=== PATIENT | male | born 1975 | race African-American/Black ===

== ENCOUNTER 2021-12-25 13:12 | Emergency (ER) | payer OTHER ==
[2021-12-25 13:27] VITALS: BP 117/64; PULSE 110; RESP 20; TEMP 99.8
--- NOTE | 2021-12-25 14:24 | ED ---
Fever HPI - General Chief Complaint: Fever Stated Complaint: fever, body aches Time Seen by Provider: 12/25/21 14:18 Source: patient, RN notes reviewed Mode of arrival: ambulatory Limitations: no limitations - History of Present Illness Initial Comments: This is a 46-year-old male presents emergency Department chief complaint of fever bodyaches. Patient states certain last 24 hours. Patient states that he took some [id number] cough and cold-like medicine which seemed to help. Patient states bodyaches worsened after much more off. Patient has mild nasal congestion no shortness of breath mild cough. Patient does admit to some nausea without any other associated symptoms. Patient has no significant past history. Denies any prescription medications. - Related Data Allergies Allergy/AdvReac Type Severity Reaction Status Date / Time No Known Allergies Allergy Verified 12/25/21 13:27 Review of Systems ROS Statement: Those systems with pertinent positive or pertinent negative responses have been documented in the HPI. ROS Other: All systems not noted in ROS Statement are negative. Past Medical History Past Medical History: No Reported History History of Any Multi-Drug Resistant Organisms: None Reported Past Surgical History: Hernia Repair Past Psychological History: No Psychological Hx Reported Smoking Status: Current every day smoker Past Alcohol Use History: None Reported Past Drug Use History: None Reported General Exam Limitations: no limitations General appearance: alert, in no apparent distress Head exam: Present: atraumatic, normocephalic, normal inspection Eye exam: Present: normal appearance, PERRL, EOMI. Absent: scleral icterus, conjunctival injection, periorbital swelling ENT exam: Present: normal exam, normal oropharynx, mucous membranes moist Neck exam: Present: normal inspection, full ROM. Absent: tenderness, meningismus, lymphadenopathy Respiratory exam: Present: normal lung sounds bilaterally. Absent: respiratory distress, wheezes, rales, rhonchi, stridor Cardiovascular Exam: Present: normal rhythm, tachycardia, normal heart sounds. Absent: systolic murmur, diastolic murmur, rubs, gallop, clicks GI/Abdominal exam: Present: soft, normal bowel sounds. Absent: distended, tenderness, guarding, rebound, rigid Course Vital Signs 12/25/21 13:24 Temperature 99.8 F H Pulse Rate 110 H Respiratory 20 Rate Blood Pressure 117/64 O2 Sat by Pulse 96 Oximetry Medical Decision Making - Medical Decision Making Patient is covid 19 positive. Vitals are stable. Patient we discharged in stable condition return parameters were discussed. - Lab Data Lab Results 12/25/21 Range/Units 13:29 Coronavirus (PCR) Detected A (Not Detectd) Disposition Clinical Impression: COVID-19 Disposition: HOME SELF-CARE Condition: Stable Instructions (If sedation given, give patient instructions): Fever in Adults (ED), COVID-19 (Coronavirus Disease 2019) (ED) Additional Instructions: Please return to the Emergency Department if symptoms worsen or any other concerns. Is patient prescribed a controlled substance at d/c from ED?: No Referrals: None,Stated [Primary Care Provider] - 1-2 days Time of Disposition: 14:24
[2021-12-25] MEDS ORDERED: IBUPROFEN 600 MG TAB PO STA (14:41)
[2021-12-25] MEDS ORDERED: ACETAMINOPHEN TAB 325 MG TAB PO STA (14:41)
== END 2021-12-25 14:48 | disposition home or self-care (01) ==
LOC: EC 13:12
DX: U07.1 COVID-19 (principal); F17.200 Nicotine dependence, unspecified, uncomplicated
CPT/HCPCS: 87635; 99283

== ENCOUNTER 2022-01-01 16:15 | Emergency (ER) | payer OTHER ==
[2022-01-01 17:10] VITALS: BP 122/74; PULSE 81; RESP 18; TEMP 98.3
--- NOTE | 2022-01-01 17:37 | ED ---
General Adult HPI - General Chief complaint: Recheck/Abnormal Lab/Rx Stated complaint: Covid+/wants another covid test Time Seen by Provider: 01/01/22 17:13 Source: patient Mode of arrival: ambulatory Limitations: no limitations - History of Present Illness Initial comments: Patient is a 46-year-old male requesting repeat Covid testing. Patient tested p ositive on 12/25, he was experiencing fatigue, cough, congestion. Patient states that his employer and schooler requiring repeat testing. Patient states she is asymptomatic at this time. Patient states that he followed the 5 day quarantine roll and is currently in day 3 of wearing a mask at all times in public. He denies any chest pain, shortness of breath, fever, chills, nausea, vomiting, diarrhea, abdominal pain, rash, cough, URI-like symptoms. - Related Data Allergies Allergy/AdvReac Type Severity Reaction Status Date / Time shrimp Allergy Rash/Hives Verified 01/01/22 17:10 Review of Systems ROS Statement: Those systems with pertinent positive or pertinent negative responses have been documented in the HPI. ROS Other: All systems not noted in ROS Statement are negative. Past Medical History Past Medical History: No Reported History History of Any Multi-Drug Resistant Organisms: None Reported Past Surgical History: Hernia Repair Past Psychological History: No Psychological Hx Reported Smoking Status: Current every day smoker Past Alcohol Use History: None Reported Past Drug Use History: None Reported General Exam Limitations: no limitations General appearance: alert, in no apparent distress Head exam: Present: atraumatic, normocephalic, normal inspection Eye exam: Present: normal appearance, EOMI. Absent: scleral icterus, periorbital swelling Neck exam: Present: normal inspection Respiratory exam: Present: normal lung sounds bilaterally. Absent: respiratory distress, wheezes, rales, rhonchi, stridor Cardiovascular Exam: Present: regular rate, normal rhythm, normal heart sounds. Absent: systolic murmur, diastolic murmur, rubs, gallop, clicks Neurological exam: Present: alert, oriented X3, CN II-XII intact Psychiatric exam: Present: normal affect, normal mood Skin exam: Present: warm, dry, intact, normal color. Absent: rash Course Vital Signs 01/01/22 17:08 Temperature 98.3 F Pulse Rate 81 Respiratory 18 Rate Blood Pressure 122/74 O2 Sat by Pulse 99 Oximetry Medical Decision Making - Medical Decision Making Patient is a 46-year-old male requesting repeat Covid testing. 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 Patient states he is asymptomatic at this time. I explained to the patient that PCR testing may remain positive even after her no longer contagious, and repeat testing today may still be positive. I offered to write the patient a work note stating that by quarantine guidelines he is able to go to work and school at this time while wearing a mask at all times, and on 01/04 he is no more contagious. The patient was agreeable with this plan. Follow-up with PCP. Report back to ER if any new or worsening symptoms. Discussed return parameters answered all questions. My attending is Dr. Khoury Disposition Clinical Impression: History of COVID-19 Disposition: HOME SELF-CARE Condition: Good Instructions (If sedation given, give patient instructions): How to Recover from COVID-19 at Home (ED) Additional Instructions: Follow-up with PCP. Report back to ER with any new or worsening symptoms. You have quarantined for 5 days and on are day 3/5 of wearing a mask at all times while in public. Abdomen this time. Urine no longer contagious, and do not require immediate retesting. PCR tests can remain positive for weeks to months after testing positive for Covid, even if you are no longer contagious. Is patient prescribed a controlled substance at d/c from ED?: No Referrals: Nonstaff,Physician [Primary Care Provider] - 1-2 days Time of Disposition: 17:37
== END 2022-01-01 17:45 | disposition home or self-care (01) ==
LOC: EC 16:15
DX: Z09 Encounter for follow-up examination after completed treatment for conditions other than malignant neoplasm (principal); Z86.16 Personal history of COVID-19; F17.200 Nicotine dependence, unspecified, uncomplicated; Z91.013 Allergy to seafood
CPT/HCPCS: 99283

== ENCOUNTER 2024-02-01 07:39 | Emergency (ER) | payer OTHER ==
[2024-02-01] MEDS ORDERED: KETOROLAC 15 MG/ML 1 ML VIAL ONE (08:18)
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
--- NOTE | 2024-02-26 08:35 | XR ---
Patient: Jean-Pierre Luther Ordering Physician: Unknown, Unknown ID: [id number] Phone, Pager: Phone: N/A Pager: N/A : 1975 Age/Gender: 48Y, M Primary Location: N/A Procedure: XR shoulder comple te RT Study Date: 02/01/2024 8:45:00 AM EXAMINATION TYPE: XR shoulder complete RT DATE OF EXAM: 02/01/2024 8:46 AM CLINICAL INDICATION: Pain COMPARISON: None TECHNIQUE: XR shoulder complete RT; examined in AP, internally rotated and scapular Y projections. FINDINGS/IMPRESSION: 1. Abnormal position of the distal clavicle compared to the acromion with elevated distal clavicle. Correlate for acromioclavicular joint injury. There are some calcifications present ingesting this is possibly chronic. Correlate with patient's history. 2. No evidence for acute fracture. 3. Visualized chest appears within normal limits.
== END 2024-02-01 10:10 | disposition home or self-care (01) ==
LOC: EC 07:39
CPT/HCPCS: 72131; 96374; 99284

== ENCOUNTER → 2024-02-25 | Outpatient (CLI) | payer OTHER ==
--- NOTE | 2024-02-25 16:08 | XR ---
EXAMINATION TYPE: XR shoulder complete 3 views RT DATE OF EXAM: 02/25/2024 Comparison: 02/01/2024 Clinical History: 48-year-old male M25.511 PAIN IN RIGHT SHOULDER Findings: There is offset at the AC joint with superior positioning of the distal clavicle relative to the acro mion and extensive ossification along the region of the coracoclavicular ligaments. Subacromial space is preserved. The appearance is similar compared to prior exam. No acute fracture, subluxation, or d islocation. 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 Similar superior subluxation/dislocation at the AC joint. No acute osseous abnormality seen. [facility], , 02/25/2024 4:06 PM
== END | disposition home or self-care (01) ==
LOC: RADXRMAIN 15:16
DX: M25.511 Pain in right shoulder

== ENCOUNTER 2024-04-26 16:57 | Emergency (ER) | payer OTHER ==
[2024-04-26 17:26] VITALS: TEMP 98.2
--- NOTE | 2024-04-26 17:49 | ED ---
General Adult HPI - General Chief complaint: Back Pain/Injury Stated complaint: low back pain Time Seen by Provider: 04/26/24 17:27 Source: patient, RN notes reviewed Mode of arrival: ambulatory Limitations: no limitations - History of Present Illness Initial comments: 49-year-old male presents to the emergency department for evaluation of low back pain. Patient states that this started 2 days ago. He notes that majority of the pain is in his lower back but also reports some pain in his right flank. He denies any urinary symptoms including urinary frequency, hematuria. He denies loss of bowel or bladder function, saddle anesthesia, fever, chills. He denies any radiation of the pain. Denies numbness, tingling. - Related Data Previous Rx's Medication Instructions Recorded Cyclobenzaprine [Flexeril] 5 mg PO TID #9 tablet 04/26/24 Allergies Allergy/AdvReac Type Severity Reaction Status Date / Time shrimp Allergy Rash/Hives Verified 04/26/24 17:25 Review of Systems ROS Statement: Those systems with pertinent positive or pertinent negative responses have been documented in the HPI. ROS Other: All systems not noted in ROS Statement are negative. Past Medical History Past Medical History: No Reported History History of Any Multi-Drug Resistant Organisms: None Reported Past Surgical History: Hernia Repair Past Psychological History: No Psychological Hx Reported Smoking Status: Current every day smoker Past Alcohol Use History: None Reported Past Drug Use History: None Reported General Exam Limitations: no limitations General appearance: alert, in no apparent distress Head exam: Present: atraumatic, normocephalic, normal inspection Eye exam: Present: normal appearance, PERRL, EOMI. Absent: scleral icterus, conjunctival injection, periorbital swelling ENT exam: Present: normal exam, mucous membranes moist Neck exam: Present: normal inspection. Absent: tenderness, meningismus, lymphadenopathy Respiratory exam: Present: normal lung sounds bilaterally. Absent: respiratory distress, wheezes, rales, rhonchi, stridor Cardiovascular Exam: Present: regular rate, normal rhythm, normal heart sounds. Absent: systolic murmur, diastolic murmur, rubs, gallop, clicks GI/Abdominal exam: Present: soft. Absent: distended, tenderness, guarding, rebound, rigid Extremities exam: Present: normal inspection, full ROM, normal capillary refill. Absent: tenderness, pedal edema, joint swelling, calf tenderness Back exam: Present: normal inspection, full ROM, tenderness (Lower lumbar) Neurological exam: Present: alert, oriented X3, CN II-XII intact Psychiatric exam: Present: normal affect, normal mood Course Vital Signs 04/26/24 04/26/24 17:23 19:53 Temperature 98.2 F Pulse Rate 59 L 58 L Respiratory 20 16 Rate Blood Pressure 113/73 118/75 O2 Sat by Pulse 99 99 Oximetry Medical Decision Making - Medical Decision Making Was pt. sent in by a medical professional or institution (, PA, MEDICAL STAFFING COORDINATOR, urgent care, hospital, or [facility]...) When possible be specific @ -No Did you speak to anyone other than the patient for history (EMS, parent, family, police, friend...)? What history was obtained from this source @ -No Did you review nursing and triage notes (agree or disagree)? Why? @ -I reviewed and agree with nursing and triage notes Were old charts reviewed (outside hosp., previous admission, EMS record, old EKG, old radiological studies, urgent care reports/EKG's, [facility] records)? Report findings @ -No old charts were reviewed Differential Diagnosis (chest pain, altered mental status, abdominal pain women, abdominal pain men, vaginal bleeding, weakness, fever, dyspnea, syncope, headache, dizziness, GI bleed, back pain, seizure, CVA, palpatations, mental health, musculoskeletal)? @ -Differential Back Pain: Strain, zoster, cauda equina syndrome, epidural abscess, vertebral osteomyelitis, discitis, fracture, subluxation, disc herniation, DJD, spinal stenosis, dissection, AAA, pancreatitis, peptic ulcer disease, pyelonephritis, kidney stone, this is not meant to be an all-inclusive list. EKG interpreted by me (3pts min.). @ -None X-rays interpreted by me (1pt min.). @ -X-ray of the lumbar spine shows no acute process, degenerative changes at L5-S1 CT interpreted by me (1pt min.). @ -None done U/S interpreted by me (1pt. min.). @ -None done What testing was considered but not performed or refused? (CT, X-rays, U/S, labs)? Why? @ -None What meds were considered but not given or refused? Why? @ -None Did you discuss the management of the patient with other professionals (professionals i.e. , PA, MEDICAL STAFFING COORDINATOR, lab, RT, psych nurse, delinquency prevention social worker, regional agronomist, teacher, chief technical officer, nurse case management)? Give summary @ -No Was smoking cessation discussed for >3mins.? @ -No Was critical care preformed (if so, how long)? @ -No Were there social determinants of health that impacted care today? How? (Homelessness, low income, unemployed, alcoholism, drug addiction, transportation, low edu. Level, literacy, decrease access to med. care, senior living, rehab)? @ -No Was there de-escalation of care discussed even if they declined (Discuss DNR or withdrawal of care, Hospice)? DNR status @ -No What co-morbidities impacted this encounter? (DM, HTN, Smoking, COPD, CAD, Cancer, CVA, ARF, Chemo, Hep., AIDS, mental health diagnosis, sleep apnea, morbid obesity)? @ -None Was patient admitted / discharged? Hospital course, mention meds given and route, prescriptions, significant lab abnormalities, going to OR and other pertinent info. @ -Discharge. Patient presented to the emergency department for evaluation of low back pain with no known trauma. UA was obtained revealing no evidence of infectious process, negative for blood. X-ray of the lumbar spine shows no acute process. Patient was provided medication for pain control in the emergency department including Norflex, Toradol, lidocaine patches. He does report improvement in his symptoms with his lidocaine patch. The patient was then administered a Arco for pain. Prescription was sent to the patient's pharmacy for muscle relaxer. Advised to not drive or operate heavy machinery while taking this medication. He is understanding and agreeable with this plan. Patient stable at time of discharge. Case discussed with Dr. Garcia Undiagnosed new problem with uncertain prognosis? @ -No Drug Therapy requiring intensive monitoring for toxicity (Heparin, Nitro, Insulin, Cardizem)? @ -No Were any procedures done? @ -No Diagnosis/symptom? @ -Low back pain Acute, or Chronic, or Acute on Chronic? @ -Acute Uncomplicated (without systemic symptoms) or Complicated (systemic symptoms)? @ -Uncomplicated Side effects of treatment? @ -No Exacerbation, Progression, or Severe Exacerbation? @ -No Poses a threat to life or bodily function? How? (Chest pain, [place], [place], pneumonia, PE, COPD, DKA, ARF, appy, cholecystitis, CVA, Diverticulitis, Homicidal, Suicidal, threat to staff... and all critical care pts) @ -No - Lab Data Lab Results 04/26/24 Range/Units 17:53 Urine Color Light Yellow Urine Appearance Clear (Clear) Urine pH 5.5 (5.0-8.0) Ur Specific [place] 1.024 (1.001-1.035) Urine Protein Negative (Negative) Urine Glucose (UA) Negative (Negative) Urine Ketones Negative (Negative) Urine Blood Negative (Negative) Urine Nitrite Negative (Negative) Urine Bilirubin Negative (Negative) Urine Urobilinogen <2.0 (<2.0) mg/dL Ur Leukocyte Esterase Negative (Negative) Disposition Clinical Impression: Strain of lumbar region Disposition: HOME SELF-CARE Condition: Stable Instructions (If sedation given, give patient instructions): Acute Low Back Pain (ED) Additional Instructions: Please do not drive or operate heavy machinery while taking the muscle relaxer. Follow up with your primary care provider. Return to the emergency department for new or worsening symptoms. Prescriptions: Cyclobenzaprine [Flexeril] 5 mg PO TID #9 tablet Is patient prescribed a controlled substance at d/c from ED?: No Referrals: Nonstaff,Physician [Primary Care Provider] - 1-2 days
[2024-04-26] MEDS: LIDOCAINE 4% PATCH TOPICAL ONE (18:04)
[2024-04-26 18:05] LABS: Appearance,Urine Clear (Clear); Bilirubin,Urine Negative (Negative); Blood,Urine Negative (Negative); Color,Urine Light Yellow; Glucose,Urine (UA) Negative (Negative); Ketones,Urine Negative (Negative); Leukocyte Esterase,Urine Negative (Negative); Nitrite,Urine Negative (Negative); PH, Urine 5.5 (5.0-8.0); Protein,Urine Negative (Negative); Specific Gravity,Urine 1.024 (1.001-1.035); Urobilinogen,Urine <2.0 mg/dL (<2.0)
[2024-04-26] MEDS: KETOROLAC 15 MG/ML 1 ML VIAL IM STA (18:05)
[2024-04-26] MEDS: ORPHENADRINE 30 MG/ML 2 ML VIAL IM STA (18:05)
--- NOTE | 2024-04-26 18:35 | XR ---
EXAMINATION TYPE: XR lumbar spine 2 or 3V DATE OF EXAM: 04/26/2024 6:27 PM COMPARISON: None. CLINICAL INDICATION: Male, 49 years old with history of pain, TECHNIQUE: 3 view(s) obtained. FINDINGS: There are 5 lumbar-type vertebral bodies. Pedicles are intact. There is narrowing of the disc height at L5-S1. Remaining disc heights are preserved. Vertebral body heights are preserved. IMPRESSION: 1. No acute osseous abnormality lumbar spine. 2. Degenerative disc changes L5-S1 [facility], , 04/26/2024 6:32 PM
[2024-04-26] MEDS: HYDROcodone/APAP 5-325MG 1 EACH TAB PO STA (19:50)
[2024-04-26 20:09] VITALS: BP 118/75; PULSE 58; RESP 16
== END 2024-04-26 19:53 | disposition home or self-care (01) ==
LOC: EC 16:57
DX: S39.012A Strain of muscle, fascia and tendon of lower back, initial encounter (principal); F17.200 Nicotine dependence, unspecified, uncomplicated; Z91.013 Allergy to seafood; X58.XXXA Exposure to other specified factors, initial encounter
CPT/HCPCS: 81003; 72100; 99284; 96372 ×2; J2360; J1885

== ENCOUNTER 2024-06-15 10:20 | Emergency (ER) | payer OTHER ==
[2024-06-15 10:55] VITALS: TEMP 98.1
--- NOTE | 2024-06-15 10:58 | ED ---
General Adult HPI - General Chief complaint: Urogenital Stated complaint: Poss STD Time Seen by Provider: 06/15/24 10:23 Source: patient, RN notes reviewed Mode of arrival: ambulatory Limitations: no limitations - History of Present Illness Initial comments: 49-year-old male presents emergency department chief complaint of dysuria. Patient is concerned about possible UTI patient states she has white drainage. Patient states that he has had this in the past. Patient denies fever chills denies any lesions or sores. Patient offers no complaints. - Related Data Previous Rx's Medication Instructions Recorded Cyclobenzaprine [Flexeril] 5 mg PO TID #9 tablet 04/26/24 Doxycycline [Vibramycin] 100 mg PO BID #14 capsule 06/15/24 Allergies Allergy/AdvReac Type Severity Reaction Status Date / Time shrimp Allergy Rash/Hives Verified 06/15/24 10:55 Review of Systems ROS Statement: Those systems with pertinent positive or pertinent negative responses have been documented in the HPI. ROS Other: All systems not noted in ROS Statement are negative. Past Medical History Past Medical History: No Reported History History of Any Multi-Drug Resistant Organisms: None Reported Past Surgical History: Hernia Repair Past Psychological History: No Psychological Hx Reported Smoking Status: Current some day smoker Past Alcohol Use History: None Reported Past Drug Use History: Marijuana General Exam Limitations: no limitations General appearance: alert, in no apparent distress Head exam: Present: atraumatic, normocephalic, normal inspection Respiratory exam: Present: normal lung sounds bilaterally. Absent: respiratory distress, wheezes, rales, rhonchi, stridor Cardiovascular Exam: Present: regular rate, normal rhythm, normal heart sounds. Absent: systolic murmur, diastolic murmur, rubs, gallop, clicks GI/Abdominal exam: Present: soft, normal bowel sounds. Absent: distended, tenderness, guarding, rebound, rigid Course Vital Signs 06/15/24 10:52 Temperature 98.1 F Pulse Rate 70 Respiratory 22 Rate Blood Pressure 140/88 O2 Sat by Pulse 98 Oximetry Medical Decision Making - Medical Decision Making Was pt. sent in by a medical professional or institution (, PA, METER MECHANIC, urgent care, hospital, or group home...) When possible be specific @ -[No] Did you speak to anyone other than the patient for history (EMS, parent, family, police, friend...)? What history was obtained from this source @ -[No] Did you review nursing and triage notes (agree or disagree)? Why? @ -[I reviewed and agree with nursing and triage notes] Were old charts reviewed (outside hosp., previous admission, EMS record, old EKG, old radiological studies, urgent care reports/EKG's, group home records)? Report findings @ -[No old charts were reviewed] Differential Diagnosis (chest pain, altered mental status, abdominal pain women, abdominal pain men, vaginal bleeding, weakness, fever, dyspnea, syncope, headache, dizziness, GI bleed, back pain, seizure, CVA, palpatations, mental health, musculoskeletal)? @ -UTI, STD EKG interpreted by me (3pts min.). @ -None X-rays interpreted by me (1pt min.). @ -[None done] CT interpreted by me (1pt min.). @ -[None done] U/S interpreted by me (1pt. min.). @ -[None done] What testing was considered but not performed or refused? (CT, X-rays, U/S, labs)? Why? @ -[None] What meds were considered but not given or refused? Why? @ -[None] Did you discuss the management of the patient with other professionals (professionals i.e. , PA, METER MECHANIC, lab, RT, psych nurse, social work lecturer, hydraulic bull riveter operator, teacher, humane officer, lining caser)? Give summary @ -[No] Was smoking cessation discussed for >3mins.? @ -[No] Was critical care preformed (if so, how long)? @ -[No] Were there social determinants of health that impacted care today? How? (Homelessness, low income, unemployed, alcoholism, drug addiction, transportation, low edu. Level, literacy, decrease access to med. care, nursing home, rehab)? @ -[No] Was there de-escalation of care discussed even if they declined (Discuss DNR or withdrawal of care, Hospice)? DNR status @ -[No] What co-morbidities impacted this encounter? (DM, HTN, Smoking, COPD, CAD, Cancer, CVA, ARF, Chemo, Hep., AIDS, mental health diagnosis, sleep apnea, morbid obesity)? @ -[None] Was patient admitted / discharged? Hospital course, mention meds given and route, prescriptions, significant lab abnormalities, going to OR and other pertinent info. @ -Discharge patient has pain on discharge concern for STD will be treated with doxycycline and Rocephin. Undiagnosed new problem with uncertain prognosis? @ -[No] Drug Therapy requiring intensive monitoring for toxicity (Heparin, Nitro, Insulin, Cardizem)? @ -[No] Were any procedures done? @ -[No] Diagnosis/symptom? @ -STD exposure, STD screening Acute, or Chronic, or Acute on Chronic? @ -Acute Uncomplicated (without systemic symptoms) or Complicated (systemic symptoms)? @ -Uncomplicated Side effects of treatment? @ -[No] Exacerbation, Progression, or Severe Exacerbation? @ -[No] Poses a threat to life or bodily function? How? (Chest pain, [place], [place], pneumonia, PE, COPD, DKA, ARF, appy, cholecystitis, CVA, Diverticulitis, Homicidal, Suicidal, threat to staff... and all critical care pts) @ -[No] Disposition Clinical Impression: Possible exposure to STD, Penile discharge Disposition: HOME SELF-CARE Condition: Stable Instructions (If sedation given, give patient instructions): Sexually Transm itted Diseases (ED) Additional Instructions: Please return to the Emergency Department if symptoms worsen or any other concerns. Prescriptions: Doxycycline [Vibramycin] 100 mg PO BID #14 capsule Is patient prescribed a controlled substance at d/c from ED?: No Referrals: None,Stated [Primary Care Provider] - 1-2 days Time of Disposition: 10:58
[2024-06-15] MEDS: cefTRIAXone 1,000 MG VIAL (IM USE) IM STA (11:41)
[2024-06-15 11:46] VITALS: BP 136/92; PULSE 61; RESP 16
== END 2024-06-15 11:46 | disposition home or self-care (01) ==
LOC: EC 10:20
DX: Z20.2 Contact with and (suspected) exposure to infections with a predominantly sexual mode of transmission (principal); F17.200 Nicotine dependence, unspecified, uncomplicated; Z88.8 Allergy status to other drugs, medicaments and biological substances
CPT/HCPCS: 99283; 96372; J0696